=== PATIENT | female | born 1965 | race Caucasian/White ===

== ENCOUNTER → 2021-02-13 | Outpatient (CLI) | payer MEDICARE, OTHER ==
[2021-02-13 15:53] LABS: Basophils # (A) 0.1 k/uL (0-0.2); Basophils % (A) 2 %; Eosinophils # (A) 0.2 k/uL (0-0.7); Eosinophils % (A) 5 %; HCT 40.4 % (34.0-46.0); HGB 14.1 gm/dL (11.4-16.0); Lymphocytes # (A) 1.3 k/uL (1.0-4.8); Lymphocytes % (A) 27 %; MCH 31.8 pg (25.0-35.0); MCHC 34.9 g/dL (31.0-37.0); MCV 91.1 fL (80.0-100.0); Mean Platelet Volume 6.9; Monocytes # (A) 0.4 k/uL (0-1.0); Monocytes % (A) 8 %; Neutrophils # (A) 2.8 k/uL (1.3-7.7); Neutrophils % (A) 57 %; Platelet Count 307 k/uL (150-450); RBC 4.43 m/uL (3.80-5.40); RDW 12.2 % (11.5-15.5); WBC 4.9 k/uL (3.8-10.6)
== END | disposition home or self-care (01) ==
LOC: LABPAT 14:23
PROVIDERS: ATTEND Obstetrics & Gynecology
DX: Z01.818 Encounter for other preprocedural examination (principal)
CPT/HCPCS: 36415; 85025; 93005

== ENCOUNTER 2021-02-22 10:14 | Day surgery (SDC) | payer MEDICARE, OTHER ==
--- NOTE | 2021-02-14 17:23 | P.HPOB ---
History of Present Illness H&P Date: 02/14/21 Chief Complaint: Post menopausal bleeding Patient is a 55-year-old female with postmenopausal bleeding. She relates that approximately 3 years ago she stopped having periods however, for last couple months she's had vaginal bleeding. Ultrasound shows with a suspect is a polyp versus thickened endometrium she is scheduled for a D&C with hysteroscopy to evaluate the uterine lining. Risks/benefits/alternatives to this procedure were reviewed the patient in detail and all questions were answered for her prior to proceeding to the operative room. Exam Osteopathic Statement: *. No significant issues noted on an osteopathic struct ural exam other than those noted in the History and Physical/Consult. - OBG Physical Exam Breast: both: normal (no masses) Abdomen: bowel sounds normal, no diffuse tenderness, no bruit present, no guarding noted, no hepatomegaly, no splenomegaly, no mass Vulva: both: normal Vagina: normal moisture, no discharge Cervix: no lesion, no discharge Uterus: normal size, normal contour Adnexa: both: normal Anus/Rectum: normal perianal skin, no rectal mass, no hemorrhoids, heme negative
[2021-02-20 15:25] VITALS: BMI 29.0
[~2021-02-22 10:14] MED LIST: DEXAMETHASONE SOD PHOSPHATE 4 MG/ML 1 ML VIAL IV ONE; HYDROmorphone 0.5 MG/0.5 ML SYRINGE IVP PRN; LACTATED RINGERS 1,000 ML IV SCH; ONDANSETRON 4 MG/2 ML VIAL IVP ONE; Pre Op ABX Message 1 EACH MISC MISCELLANE ONE
[2021-02-22] MEDS ORDERED: LACTATED RINGERS 1,000 ML IV ONE (10:34)
[2021-02-22] MEDS ORDERED: ONDANSETRON 4 MG/2 ML VIAL ONE (10:44)
[2021-02-22] MEDS ORDERED: LIDOCAINE 1% INJ 10MG/ML (20 ML MDV) ONE (12:17)
[2021-02-22] MEDS ORDERED: fentaNYL (PF) 50 MCG/ML 2 ML AMP ONE (12:17)
[2021-02-22] MEDS ORDERED: PROPOFOL 10 MG/ML 20 ML VIAL IV ONE (12:17)
[2021-02-22] MEDS ORDERED: MIDAZOLAM 2 MG/2 ML VIAL ONE (12:17)
[2021-02-22] MEDS ORDERED: KETOROLAC 15 MG/ML 1 ML VIAL ONE (12:17)
--- NOTE | 2021-02-22 12:47 | P.OP ---
Date of Procedure: 02/22/21 Preoperative Diagnosis: Postmenopausal bleeding Postoperative Diagnosis: Same Procedure(s) Performed: D&C with hysteroscopy Anesthesia: ZOLTAN Surgeon: Brendan Smalls Estimated Blood Loss (ml): 3 Pathology: other (Uterine curettings) Condition: stable Disposition: same day Operative Findings: Pathology pending Description of Procedure: Patient states the operating suite where a general anesthetic was found be adequate. She was prepped and draped in normal sterile fashion and placed in dorsal lithotomy position. Initially a weighted speculum inserted in the vagina and the anterior lip of the cervix identified and grasped with single-tooth tenaculum. Uterus then sounded to 7 cm and cervix was dilated. Camera was inserted with no pathology noted. Camera was then removed and sharp curettings of the endometrium were obtained. This tissue was all collected, placed on Telfa, and sent to pathology for evaluation. All incidents were then removed, sponge, lap, needle counts were all correct 2. Patient was then taken to the recovery room in stable and satisfactory condition. Plan - Discharge Summary Discharge Rx Participant: No New Discharge Prescriptions: No Action Loratadine-Pseudoeph 10-240 mg [Claritin-D 24 Hour] 1 tab PO DAILY Multivitamins, Thera [Multivitamin (formulary)] 1 tab PO DAILY Fluticasone/Vilanterol [Breo Ellipta 100-25 Mcg Inhaler] 1 inhalation PO AC- SUPPER Escitalopram Oxalate [Lexapro] 10 mg PO HS hydroCHLOROthiazide 25 mg PO AC-SUPPER Atorvastatin Calcium [Lipitor] 10 mg PO HS clonazePAM [KlonoPIN] 0.5 mg PO BID Albuterol Inhaler [Ventolin Hfa Inhaler] 1 puff INHALATION BID PRN PRN Reason: Shortness Of Breath amLODIPine BESYLATE 10 mg PO AC-SUPPER Zafirlukast [Accolate] 20 mg PO BID Discharge Medication List Albuterol Inhaler [Ventolin Hfa Inhaler] 1 puff INHALATION BID PRN 02/20/21 [History] Atorvastatin Calcium [Lipitor] 10 mg PO HS 02/20/21 [History] Escitalopram Oxalate [Lexapro] 10 mg PO HS 02/20/21 [History] Fluticasone/Vilanterol [Breo Ellipta 100-25 Mcg Inhaler] 1 inhalation PO AC- SUPPER 02/20/21 [History] Loratadine-Pseudoeph 10-240 mg [Claritin-D 24 Hour] 1 tab PO DAILY 02/20/21 [History] Multivitamins, Thera [Multivitamin (formulary)] 1 tab PO DAILY 02/20/21 [History] Zafirlukast [Accolate] 20 mg PO BID 02/20/21 [History] amLODIPine BESYLATE 10 mg PO AC-SUPPER 02/20/21 [History] clonazePAM [KlonoPIN] 0.5 mg PO BID 02/20/21 [History] hydroCHLOROthiazide 25 mg PO AC-SUPPER 02/20/21 [History] Follow up Appointment(s)/Referral(s): Brendan Smalls DO [Doctor of Osteopathic Medicine] - 1 Week Activity/Diet/Wound Care/Special Instructions: No heavy lifting, limit stairs and driving, and pelvic rest. If any high temperatures, heavy bleeding, or severe pain call my office area and Tylenol is fine for pain Discharge Disposition: HOME SELF-CARE
[2021-02-22 13:02] VITALS: RESP 16; TEMP 97.3
[2021-02-22 14:36] VITALS: BP 115/72; PULSE 72
== END 2021-02-22 15:10 | disposition home or self-care (01) ==
LOC: OR 10:14
PROVIDERS: ATTEND Obstetrics & Gynecology
DX: N95.0 Postmenopausal bleeding (principal); R06.02 Shortness of breath; I10 Essential (primary) hypertension; E78.5 Hyperlipidemia, unspecified; J45.909 Unspecified asthma, uncomplicated
CPT/HCPCS: 58558; 88305; J2250; J1100; J2405; J2001; J3010; J1885; J2704; J1170